=== PATIENT | male | born 1985 | race African-American/Black ===

== ENCOUNTER 2020-09-08 06:04 | Emergency (ER) | payer OTHER ==
[~2020-09-08] VITALS: Ht 185.4 cm; Wt 127.0 kg
[2020-09-08] MEDS ORDERED: KETO10TA2 PO (07:39)
[2020-09-08] MEDS ORDERED: ORPHENADRINE C100 MG PO (07:39)
== END 2020-09-08 08:51 | disposition home or self-care (01) ==
LOC: ER 06:04
DX: S43.492A Other sprain of left shoulder joint, initial encounter (principal); M25.512 Pain in left shoulder; X50.0XXA Overexertion from strenuous movement or load, initial encounter; Y93.89 Activity, other specified; Y92.59 Other trade areas as the place of occurrence of the external cause; Y99.8 Other external cause status